=== PATIENT | female | born 1970 | race Caucasian/White ===

== ENCOUNTER → 2018-05-27 | Outpatient (CLI) | payer MEDICAID | LOC: ZCOL.LAB 19:23 | DX: I83.009 Varicose veins of unspecified lower extremity with ulcer of unspecified site (principal); I99.8 Other disorder of circulatory system ==

== ENCOUNTER → 2018-05-27 | Outpatient (CLI) | payer MEDICAID | LOC: COL.LAB 19:02 | DX: I83.009 Varicose veins of unspecified lower extremity with ulcer of unspecified site (principal); I99.8 Other disorder of circulatory system ==

== ENCOUNTER 2018-12-08 13:22 | Inpatient (IN) | payer MEDICAID ==
[2018-12-08] VITALS (225 sets, daily range): BP systolic 110–118; BP diastolic 80–101; PULSE 101–116; TEMP 98.4; O2SAT 84–100
[~2018-12-08] VITALS: Ht 154.9 cm; Wt 159.5 kg
[~2018-12-08 13:22] MED LIST: ADDERALL30 MG PO; BD POSIFLUSH SF10 ML IV; CARDIZEM 30MG T30 MG PO; CELEXA; CIPROFLOXA400 MG/202 IV; CLEOCIN HCL300 MG PO; CLONAZEPAM1 MG PO; DAZIDOX10 MG PO; EFFER-K20 MEQ PO; FENTANYL 50MCG TP; KLONOPIN 1MG1 MG PO; LASIX 40MG40 MG/4 ML IV; LOVENOX 6060 MG/0.6 SQ; MAXZIDE-25MG TA1 TAB PO; MOBIC15 MG PO; NEXIUM 24HR20 M1 PO; PERCOCET 325 MG1 TA2 PO; PRILOSEC10 MG PO; ROFERON-A18 MILLION IV; ROXICODONE 55 MG/TAB PO; SEROQUEL 2525 MG/TAB PO; TYLENOL 500MG500 MG PO; ZOFRAN INJ4 MG/2 ML IV
[2018-12-08 14:38] LABS: ARTERIAL BLD GAS O2 SATURATION 94.9 % (92-100); ARTERIAL BLD GAS TCO2 CT 25.5; ARTERIAL BLOOD GAS BASE EXCESS -1.4 (-2-2); ARTERIAL BLOOD GAS HCO3 24.2 meq/L (22-26); ARTERIAL BLOOD GAS PCO2 43.8 mmHg (35-45); ARTERIAL BLOOD GAS PO2 83.5 mmHg (80-100); ARTERIAL BLOOD GAS pH 7.36 (7.35-7.45)
[2018-12-08 14:59] LABS: INR 1.1 (0.8-3.0); PROTHROMBIN TIME 13.4 SECONDS (9.7-12.8)
[2018-12-08 15:00] LABS: BASO # 0.1 (0.0-0.2); BASO % 0.7 % (0.0-2.0); EOS # 0.1 (0.0-0.7); EOS % 1.2 % (0-4.0); GRAN # 6.1 (1.4-6.5); GRAN % 75.5 % (42.2-75.2); HEMATOCRIT 42.8 % (37.0-47.0); HEMOGLOBIN 13.4 g/dl (12.5-16.0); LYMPH % 12.6 % (20.0-51.0); MEAN CELL VOLUME 96 fl (80.0-100.0); MEAN CORPUSCULAR HEMOGLOBIN 30 pg (27.0-31.0); MEAN CORPUSCULAR HGB CONC 31 g/dl (33.0-37.0); MEAN PLATELET VOLUME 9.9 fl (7.4-10.4); MONO # 0.8 (0.1-0.6); MONO % 9.4 % (1.7-9.3); PLATELET COUNT 284 K/mm3 (130-400); RED BLOOD COUNT 4.47 M/mm3 (4.10-5.30)
[2018-12-08 15:02] LABS: PARTIAL THROMBOPLASTIN TIME 35.9 SECONDS (26.0-37.0)
[2018-12-08 15:15] LABS: ALANINE AMINOTRANSFERASE 14 U/L (9-52); ALBUMIN 3.6 gm/dL (3.5-5.0); ALKALINE PHOSPHATASE 260 U/L (50-136); ANION GAP 7 mmol/L (7-16); AST,SGOT 29 U/L (15-37); BILIRUBIN,TOTAL 1.9 mg/dL (0.0-1.0); BLOOD UREA NITROGEN 30 mg/dL (7-17); C-REACTIVE PROTEIN 3.8 mg/dL (0.0-0.9); CALCIUM 9.4 mg/dL (8.4-10.2); CARBON DIOXIDE 28 mmol/L (22-30); CHLORIDE 104 mmol/L (98-107); CREATININE, serum 1.25 (0.52-1.25); GLUCOSE 105 mg/dL (74-106); SODIUM 139 mmol/L (137-145); TOTAL PROTEIN 7.5 gm/dL (6.4-8.2)
[2018-12-08 15:28] LABS: TROPONIN-I < 0.012 ng/mL (0.000-0.035)
[2018-12-08] MEDS ORDERED: LASIX 40MG TABL40 MG PO (16:09)
[2018-12-08] MEDS ORDERED: ATARAX 25MG25 MG/TAB PO (16:10)
[2018-12-08] MEDS ORDERED: ZAROXOLYN5 MG PO (16:10)
[2018-12-08] MEDS ORDERED: TOPROL XL 50MG50 MG PO (16:11)
[2018-12-08] MEDS ORDERED: SILVADENE CREAM1 TU (16:12)
[2018-12-08] MEDS ORDERED: DAZIDOX10 MG PO (16:12)
[2018-12-08] MEDS ORDERED: MIRALAX PA17 GM/Dose PO (16:12)
[2018-12-08] MEDS ORDERED: LOTSPY (16:13)
[2018-12-08 16:19] LABS: COLLECTION METHOD CATHETER
[2018-12-08 16:41] LABS: HYALINE CAST >12 /lpf; MUCOUS Present /lpf; PH 5 (5-8); URINE APPEARANCE Clear; URINE BACTERIA None Seen /hpf; URINE BILIRUBIN Negative (NEGATIVE); URINE BLOOD Negative (NEGATIVE); URINE COLOR Amber; URINE GLUCOSE Negative (NEGATIVE); URINE KETONE Negative (NEGATIVE); URINE LEUKOCYTE ESTERASE Negative (NEGATIVE); URINE NITRATE Negative (NEGATIVE); URINE PROTEIN(semi-quant) 2+ (NEGATIVE); URINE UROBILINOGEN >=4.0 mg/dL (NEGATIVE)
[2018-12-08 16:43] LABS: TRICYCLIC ANTIDEPRESS URINE NEGATIVE
--- NOTE | 2018-12-08 18:25 | NUR ---
Patient arrives to ICU 8 via cart from ER, stands and pivots and transfers self to bed. Patient very anxious, easily gets self worked up. Has dry gauze dressing to RLE. IV to RAC infusing Vancomycin per pump. Oriented to room. Call light in reach.
--- NOTE | 2018-12-08 19:10 | NUR ---
Reviewing med list with patient and mother. Mother states patient manages own medications and takes on own, but hasn't had any of them today. Patient states hasn't had any Oxycodone in 3-4 days because she ran out. Also states she took some Clonazepam last night, "I used to take it all the time". There's also a list of medications "patient is not to recieve" on the bottom of her medication list. States has not taken any Methamphetamin since July or before, but does take Adderall at home and has a "prescription to prove it."
--- NOTE | 2018-12-08 19:59 | NUR ---
Report given to Careeta RN, mother and daughter at bedside and provide information. Patient very anxious, but able to redirect for short periods of time. Wearing BiPap at this moment with little difficulty.
[2018-12-08] MEDS ORDERED: DULCOLAX STOOL100 MG PO (20:22)
[2018-12-08] MEDS ORDERED: TYLENOL 500MG500 MG PO (20:23)
--- NOTE | 2018-12-08 23:44 | NUR ---
Pt sitting up at bed side, extremely anxious, scratching at leg and face. Able to tolerated bipap for able 45-1hour at the start of this shift. refusing current anxiety medications ordered. SHOSHANA Flores adn Dr. Caba, update on pt agitation and noncompliance with some of the medical tx d/t to agitation, orders recieved. Open ulcer noted on pt lower extremeties, bilat feet and lower legs dusky. Inside folds reddened. Neuro: A/O x 3 Resp: Currently on 3L NC @ 96% with Noc BiPap as needed, lung clear in upper and bases dim bilat Cardiac: SR to ST in low 100's BP stable at this time. [facility] remains in place. Will continue to monitor and update providers as needed.
[2018-12-09] VITALS (688 sets, daily range): BP systolic 11–122; BP diastolic 63–85; PULSE 69–98; TEMP 97.8–98.9; O2SAT 70–100
[2018-12-09 05:32] LABS: BASO # 0.1 (0.0-0.2); BASO % 0.5 % (0.0-2.0); EOS # 0.2 (0.0-0.7); EOS % 1.5 % (0-4.0); GRAN # 7.5 (1.4-6.5); GRAN % 75.2 % (42.2-75.2); HEMATOCRIT 42.6 % (37.0-47.0); HEMOGLOBIN 13.5 g/dl (12.5-16.0); LYMPH # 1.1 (1.2-3.4); LYMPH % 11.1 % (20.0-51.0); MEAN CELL VOLUME 94 fl (80.0-100.0); MEAN CORPUSCULAR HEMOGLOBIN 30 pg (27.0-31.0); MEAN CORPUSCULAR HGB CONC 32 g/dl (33.0-37.0); MEAN PLATELET VOLUME 10.2 fl (7.4-10.4); MONO # 1.1 (0.1-0.6); MONO % 11.2 % (1.7-9.3); PLATELET COUNT 256 K/mm3 (130-400); RED BLOOD COUNT 4.53 M/mm3 (4.10-5.30)
--- NOTE | 2018-12-09 05:57 | NUR ---
Sandra ANNA was called to notify of critical CO2-13, Order recieved for Stat ABG
--- NOTE | 2018-12-09 06:00 | NUR ---
RT called to draw STAT ABG
[2018-12-09 06:41] LABS: ALANINE AMINOTRANSFERASE 13 U/L (9-52); ALBUMIN 3.2 gm/dL (3.5-5.0); ALKALINE PHOSPHATASE 235 U/L (50-136); ANION GAP 10 mmol/L (7-16); AST,SGOT 24 U/L (15-37); BLOOD UREA NITROGEN 28 mg/dL (7-17); CALCIUM 8.9 mg/dL (8.4-10.2); CARBON DIOXIDE 26 mmol/L (22-30); CHLORIDE 104 mmol/L (98-107); CREATININE, serum 1.08 (0.52-1.25); GLUCOSE 81 mg/dL (74-106); MAGNESIUM 1.9 mg/dL (1.6-2.3); POTASSIUM 4.6 mmol/L (3.4-5.0); SODIUM 139 mmol/L (137-145); TOTAL PROTEIN 6.9 gm/dL (6.4-8.2)
--- NOTE | 2018-12-09 06:41 | NUR ---
RT leaving bedside at this time, unable to obtain STAT ABG, and pt refusing sticks. Pt lips started to look cyanotic, RN able to convince pt of dire need to wear B-Pap at this time. Will continue to monitor and update providers as needed.
--- NOTE | 2018-12-09 06:47 | NUR ---
PT IS A DIFFICULT STICK AND IS REFUSING ALL STICKS AT THIS TIME.
[2018-12-09 06:54] LABS: TROPONIN-I < 0.012 ng/mL (0.000-0.035)
[2018-12-09 07:28] LABS: ARTERIAL BLD GAS O2 SATURATION 82.7 % (92-100); ARTERIAL BLD GAS TCO2 CT 25.6; ARTERIAL BLOOD GAS BASE EXCESS -1.2 (-2-2); ARTERIAL BLOOD GAS HCO3 24.3 meq/L (22-26); ARTERIAL BLOOD GAS PCO2 43.6 mmHg (35-45); ARTERIAL BLOOD GAS PO2 51.9 mmHg (80-100); ARTERIAL BLOOD GAS pH 7.36 (7.35-7.45)
--- NOTE | 2018-12-09 07:42 | NUR ---
Dr. Perry was called x 3 to update of Consult, Office report that phones turn over after 0800, will pass on to dayshift to call again Dr. Gonzalez was called and update with new Co2 results and ABG, no orders recieved at this time.
--- NOTE | 2018-12-09 07:50 | NUR ---
Bedside report received from NITHYA Silvestre.
--- NOTE | 2018-12-09 08:00 | NUR ---
Assessment completed. Pt resting in bed, on Bipap. Pt arousable, easily upset. Oriented x3. Pt becomes anxious, tries to take off bipap mask. Pt remains on Precedex gtt through right AC PIV. Attempted to calm pt down, sips of water given. Repositioned pt for comfort. Pt c/o right lower leg pain when moved. kerlex drsg wrapped around RLL. Pt states she has had open wounds "for awhile". Right leg elevated on pillow. Discussed plan of care r/t importance of bipap. Pt able to keep bipap mask on. Call light in reach. Will monitor.
--- NOTE | 2018-12-09 08:48 | NUR ---
PT and OT in room with pt.
--- NOTE | 2018-12-09 09:50 | NUR ---
Precedex gtt turned off per Dr Caba's orders. Pt remains on bipap mask, pt still drowsy.
--- NOTE | 2018-12-09 09:55 | NUR ---
Bipap mask off, pt placed on 4L oxymask. Pt denies SOB. Sips of water given to pt. Pt tolerated well. Pt's mother and dtr at bedside. Emotional support given.
--- NOTE | 2018-12-09 10:14 | NUR ---
SW attended clinical rounds. Patient's mother, [place], and daughter were also present. Dr Caba and Dr Gonzalez voiced concerns about patient refusing treatment, PT, OT, and being agitated when she is awake. Dr Gonzalez also reported that patient tested positive for meth. Patient's mother reports she was not aware patient used meth recently. Patient's mother was very tearful during rounds. Patient woke up during rounds and became upset when her mom was voicing concerns. Patient's mother reported that when patient was discharged from [facility], she was not set up with any home health services but she was given O2 by [facility]. Patient's mother reports that patient does not like to use the oxygen. Patient also has a walker, w/c, cane, and shower chair at home. Dr Gonzalez also ordered a pallative care consult. Dr Gonzalez also reported that he would like psych to see patient once she is available but patient's mother does not want Dr Jiménez to be involved. Patient's mother reports that she was not helpful in the past. Patient lives in [place] with her mother and daughter. Patient's PCP is Dr Horner and she obtains prescriptions from [facility]. SW will continue to follow and assist with discharge needs.
--- NOTE | 2018-12-09 10:22 | NUR ---
Sara parr [place] at bedside to do PICC placement.
--- NOTE | 2018-12-09 12:30 | NUR ---
Bed bath given. Pt OOB to chair x1 assist. Steady gait. Pt tolerated well. Denies any SOB. VSS. Pt sitting in chair eating lunch. Pt's mother and dtr at bedside. Call light in reach.
--- NOTE | 2018-12-09 12:45 | NUR ---
Pt back to chair x1 assist. Steady gait. Pt in bed with bipap mask on. Pt sleeping when not stimulated. Ultrasound at bedside for venous duplex study of BLE.
--- NOTE | 2018-12-09 13:20 | NUR ---
maria teresa, palliative care RN, at bedside talking with pt's mother. Pt sleepy, in bed on bipap.
--- NOTE | 2018-12-09 13:52 | NUR ---
Left message with wound care for consult on Right lower extrem.
--- NOTE | 2018-12-09 14:15 | NUR ---
Drsg changed on right lower extrem. Multiple open uclers all over gutierrez and calf area. Stage 2 and unstageable wounds. Cleaned with sterile saline. Telfa applied on wounds and leg wrapped with kerlex. Pt c/o some pain with right leg during drsg change. Pt goes back to sleep when drsg change complete. Pt's mother and dtr at bedside.
--- NOTE | 2018-12-09 14:45 | NUR ---
Pt is quite drowsy but on bipap. I visited with mother and daughter of pt at bedside. They describe her as depressed. They reports she has been doing more around the house with folding clothes and doing dishes. Thought processes are not always clear though. Blame for things not going well is projected on others at times. Family denies any drug use leading up to this event. When told by Dr Jiménez the serious nature of pt's condition and the very poor prognosis, mother broke down, tearful. "How can I make her do these things to take care of herself? Advised that this is something that Galdino has to do and consistently." Mother is also seeing a therapist and was encouraged to continue that contact. Daughter Laylen "is the most important thing to Galdino". Support provided in this difficult situation. Discussed with Anabel Barone RN.
--- NOTE | 2018-12-09 16:42 | NUR ---
SW submitted a CPS report due to patient testing postive for meth and concerns for patient's daughter living at home. CPS intake ID [id number]
--- NOTE | 2018-12-09 19:39 | NUR ---
received report from wong fletcher.
--- NOTE | 2018-12-09 19:46 | NUR ---
called and updated the patients mother on patients condition.
[2018-12-10] VITALS (420 sets, daily range): BP systolic 104–120; BP diastolic 64–85; PULSE 90–97; TEMP 97.5–99.2; O2SAT 75–100
[2018-12-10 05:06] LABS: BASO % 0.3 % (0.0-2.0); EOS # 0.1 (0.0-0.7); EOS % 0.9 % (0-4.0); GRAN # 6.7 (1.4-6.5); GRAN % 74.4 % (42.2-75.2); HEMATOCRIT 41.9 % (37.0-47.0); LYMPH % 11.4 % (20.0-51.0); MEAN CELL VOLUME 96 fl (80.0-100.0); MEAN CORPUSCULAR HEMOGLOBIN 30 pg (27.0-31.0); MEAN CORPUSCULAR HGB CONC 31 g/dl (33.0-37.0); MEAN PLATELET VOLUME 9.9 fl (7.4-10.4); MONO # 1.1 (0.1-0.6); MONO % 12.6 % (1.7-9.3); PLATELET COUNT 230 K/mm3 (130-400); RED BLOOD COUNT 4.38 M/mm3 (4.10-5.30)
[2018-12-10 05:16] LABS: ALBUMIN 3.2 gm/dL (3.5-5.0); BILIRUBIN,TOTAL 3.5 mg/dL (0.0-1.0); CREATININE, serum 1.01 (0.52-1.25); TOTAL PROTEIN 7.1 gm/dL (6.4-8.2)
--- NOTE | 2018-12-10 07:25 | NUR ---
GAVE REPORT TO NITHYA GRESHAM.
--- NOTE | 2018-12-10 16:03 | NUR ---
Report called to Ivan BARRIGA
--- NOTE | 2018-12-10 16:51 | NUR ---
Transferred to Room 354 via WC by Deb BARRIGA. Mom and daughter at side for transfer. Attempt to call primary nurse, unavailable, will return call
--- NOTE | 2018-12-10 23:00 | NUR ---
Initial shift assessment done- pt has been sleeping first part of the shift,, right lower extremity dressing saturated with serous drainage- changed at this time with xeroform, abd,s and kerlix per wound orders- has numerous ulcers to Rlower leg- pt yelling out in pain- Spring given and dose of IV morphine given during the dressing change.- pt states the Morphine was effective- requesting food once dressing change was done. Has Saab with patricia urine-
[2018-12-11] VITALS (7 sets, daily range): BP systolic 97–121; BP diastolic 51–86; PULSE 85–100; TEMP 97.6–9707
--- NOTE | 2018-12-11 06:00 | NUR ---
Did sleep well all night after RLE dressing change- VSS, no requests.
[2018-12-11 06:31] LABS: ALBUMIN 3.1 gm/dL (3.5-5.0); BILIRUBIN,TOTAL 2.8 mg/dL (0.0-1.0); CREATININE, serum 0.91 (0.52-1.25); POTASSIUM 3.6 mmol/L (3.4-5.0); TOTAL PROTEIN 7.1 gm/dL (6.4-8.2)
--- NOTE | 2018-12-11 07:15 | NUR ---
Report received from Melanie BARRIGA. pT on contact precautions for MRSA. Resting in bed, ordered her breakfast, will continue to monitor.
--- NOTE | 2018-12-11 09:51 | NUR ---
Assessment charted. Pt is lethargic but awoke and ate all of breakfast. 02 at 3L NC. PICC to PAT, flushes and good blood return. Skin issues documented, see assessment. Pt c/o some pain to RLE. Reviewed plan to change dressing. Wants to take a nap after breakfast, will provide calm and dark environment per request.
--- NOTE | 2018-12-11 12:41 | NUR ---
Dressing change completed on RLE at this time. Pt tolerated well but it was painful for her when pulling off old dressing. It was saturated. Replaced with 8 4x4 zeroforms, ABDX4, Kerlex x3, refused stockinette. Pt resting on back, ordered lunch per her request. Will continue to monitor.
--- NOTE | 2018-12-11 18:52 | NUR ---
Bed bath provided this afternoon, cleaned thoroughly, changed bed, interdry and lotrimin powder provided to henry. Saab draining patricia dark urine well. Up to chair for supper, ate well. PRN pain meds provided this evening per request. Back in bed. Will give bedside shift report to nighthshift nurse who will resume care.
--- NOTE | 2018-12-11 22:25 | NUR ---
PATIENT LAYING IN BED WITH EYES CLOSED WATCHING TV. REPORTING GENRALIZED PAIN @ 8 ON 0-10 PAIN SCALE SEE EMAR FOR MORPHINE 2MG ADMINISTERED ORDERED. ATTITUDE WITHRAWN BUT PLEASANT AND COOPERATIVE. A/O X 4. DRESSING TO RLE CDI. SEE ASSESSMENT FOR FURTHER ASSESSMENT. DENIES FURTHER NEEDS OR COMPLAINTS AT END OF VISIT.
--- NOTE | 2018-12-12 02:43 | NUR ---
CALL FROM TELEMETRY REPORTING THAT PATIENT HAD 6-10 SECOND RUN OF AFIB WITH RVR MAX HEART RATE 130. CONVERTED BACK TO NSR WITH RATE IN LOW 90'S. PATIENT ASSESED. ASLEEP BUT EASILY AROUSED WHEN SPOKEN TO. DENIES C/O OF CHEST PAIN OR PALPATIONS. PATIENT HAS TAKEN OF BIPAP MASK. MASK REAPPLIED AND PATIENT EDUCATED ON IMPORTANCE OF WEARING MASK WHILE ASLEEP. VERBALIZES UNDERSTANDING. BP 95/44, HR 93, O2 93 ON NC. VAUGHN INVESTMENT ACCOUNTANT NOTIFIED OF ABOVE DOCUMENTATION. COMMUNICATION TO CONTINUE TO MONITOR AT THIS TIME.
[2018-12-12 03:47] VITALS: BP 99/61; PULSE 90; TEMP 98.6
[2018-12-12 05:46] LABS: BASO # 0.1 (0.0-0.2); BASO % 0.7 % (0.0-2.0); EOS # 0.2 (0.0-0.7); EOS % 2.9 % (0-4.0); GRAN # 4.7 (1.4-6.5); GRAN % 68.5 % (42.2-75.2); HEMATOCRIT 43.5 % (37.0-47.0); HEMOGLOBIN 13.4 g/dl (12.5-16.0); LYMPH % 13.8 % (20.0-51.0); MEAN CELL VOLUME 96 fl (80.0-100.0); MEAN CORPUSCULAR HEMOGLOBIN 30 pg (27.0-31.0); MEAN CORPUSCULAR HGB CONC 31 g/dl (33.0-37.0); MONO # 0.9 (0.1-0.6); MONO % 13.5 % (1.7-9.3); PLATELET COUNT 224 K/mm3 (130-400); RED BLOOD COUNT 4.54 M/mm3 (4.10-5.30); REDCELL DISTRIBUTION WIDTH-CV 15.1 % (11.5-14.5)
[2018-12-12 05:54] LABS: CALCIUM 8.9 mg/dL (8.4-10.2); CREATININE, serum 0.86 (0.52-1.25); POTASSIUM 3.8 mmol/L (3.4-5.0)
--- NOTE | 2018-12-12 07:15 | NUR ---
Report received from NITHYA Dill. PT in bed resting with bipap in place. Will conitnue to monitor.
[2018-12-12 07:28] VITALS: BP 104/61; PULSE 90; TEMP 97.4
--- NOTE | 2018-12-12 09:00 | NUR ---
PICC intact right upper arm. With sterile technique right upper arm PICC dressing change done with insertion site cleansed with ChloraPrep 1, chlorhexidine impregnated disc applied, skin prep, StatLock, and Tegaderm applied. X-rays Tegaderm applied on top of dressing. Arm wrapped with Jayro to protect catheter. No signs or symptoms of IV complications noted. No concerns voiced. Patient is coperative today.
--- NOTE | 2018-12-12 09:33 | NUR ---
Assessment charted. pT lethargic this am but awakens easily and agreeable to am meds. RLE is draining through dressing and will be changed shortly. LLE remains red. Bipap tolerated when sleeping, 02 per NC when awake. PICC to PAT. Scratches on body and face from itching and scratching. PT wants to rest for some time and then wake up later. Will continue to monitor.
--- NOTE | 2018-12-12 10:46 | NUR ---
Dressing change completed at this time with assistance of one other personnel. Pt tolerated well. Yesterday's dressing was saturated. Cleaned with saline. Placed xeroform, ABDs, kerlex and tape.
[2018-12-12 13:02] VITALS: BP 115/60; PULSE 91; TEMP 97.5
--- NOTE | 2018-12-12 13:43 | NUR ---
ROLA informed that patient could discharge tomorrow but she will need post acute rehab. ROLA met with patient about this. Patient is agreeable to post acute rehab but would like SW to speak with her mother. ROLA contacted patient's mother. ROLA reported that, due to patient's insurance, there are limited options for post acute rehab. Patient's mother reports she would like to speak with patient and she will call SW back.
--- NOTE | 2018-12-12 14:06 | NUR ---
Initial visit; Patient appeared not interested in spiritual care however thanked [employer] for offering God's blessings.
--- NOTE | 2018-12-12 14:52 | NUR ---
Met with pt this afternoon but she offers little input or insight into her situation. She reports that her mother must be present to talk about goals of care or possible placement options. She is very sleepy and lethargic during this interaction, showing little strong emotion about any subject.
[2018-12-12 15:31] LABS: RHEUMATOID FACTOR-SCREEN <15 IU/mL (0-29)
--- NOTE | 2018-12-12 16:18 | NUR ---
SW provided a list of post acute rehab options (SNF and inpatient rehab) to patient's mother. Patient's mother will inform SW of choices after speaking with patient.
[2018-12-12 16:21] VITALS: BP 121/69; PULSE 92; TEMP 97.8
--- NOTE | 2018-12-12 16:58 | NUR ---
SW spoke with patient and her mother about post acute rehab choices. Patient and mother chose 1. [facility]. [facility] 3. [facility]. SW will fax referrals.
--- NOTE | 2018-12-12 18:28 | NUR ---
Pt has had a good day. Up to chair and up with therapy this afternoon. Ordered her own supper. IVF anbitiotics infusing. PRN pain meds provided over shift for RLE pain. Denies needs, will give bedside shift report to nightshift nurse who will resume care.
[2018-12-12 20:07] VITALS: BP 126/77; PULSE 98; TEMP 97.5
[2018-12-12 20:20] LABS: ANA SCREEN with REFLEX Negative (Negative)
--- NOTE | 2018-12-12 20:30 | NUR ---
Initial shift assessment done- denies pain at this time- Up to BSC with one assist,voiding dk colored urine. Tele on. Dressing intact to RLE
[2018-12-12 23:57] VITALS: BP 106/67; PULSE 90; TEMP 98.4
[2018-12-13 04:51] VITALS: BP 121/62; PULSE 101; TEMP 98.4
--- NOTE | 2018-12-13 05:31 | NUR ---
Did sleep fair during the night- pt states has not slept at all--did wear Bipap till about 0300 then insisted she could tolerate it- medicated x1 with [place] for RLE pain.
[2018-12-13 05:55] LABS: BASO # 0.1 (0.0-0.2); BASO % 0.8 % (0.0-2.0); EOS # 0.2 (0.0-0.7); GRAN % 63.6 % (42.2-75.2); HEMATOCRIT 43.9 % (37.0-47.0); HEMOGLOBIN 13.6 g/dl (12.5-16.0); LYMPH # 1.1 (1.2-3.4); LYMPH % 17.2 % (20.0-51.0); MEAN CELL VOLUME 97 fl (80.0-100.0); MEAN CORPUSCULAR HEMOGLOBIN 30 pg (27.0-31.0); MEAN CORPUSCULAR HGB CONC 31 g/dl (33.0-37.0); MEAN PLATELET VOLUME 10.1 fl (7.4-10.4); MONO # 0.9 (0.1-0.6); MONO % 14.9 % (1.7-9.3); PLATELET COUNT 182 K/mm3 (130-400); RED BLOOD COUNT 4.53 M/mm3 (4.10-5.30); REDCELL DISTRIBUTION WIDTH-CV 14.8 % (11.5-14.5)
[2018-12-13 06:08] LABS: ALBUMIN 3.1 gm/dL (3.5-5.0); CALCIUM 8.9 mg/dL (8.4-10.2); CREATININE, serum 0.9 (0.52-1.25); TOTAL PROTEIN 7.1 gm/dL (6.4-8.2)
[2018-12-13 09:01] VITALS: BP 121/79; PULSE 92; TEMP 98.5
--- NOTE | 2018-12-13 09:43 | NUR ---
ROLA spoke with [facility]. They report there is no open female bed. They are unable to accept patient. ROLA contacted Neha from [facility] yesterday later afternoon. Neha reports she will have the clinical team review patient today. ROLA also contacted [facility] in [place]. They report the clinical nursing team is reviewing patient.
[2018-12-13 13:34] VITALS: BP 124/76; PULSE 95; TEMP 98.4
--- NOTE | 2018-12-13 13:45 | NUR ---
ROLA spoke with Neha from [facility] this morning. She reports the clinical team is reviewing patient. ROLA then spoke with patient's mother via phone. She reports she believes [facility] would probably benefit patient more than a nursing facility. ROLA reported that she will update her as soon as ROLA hears from [facility] ROLA contacted Neha from [facility], again. ROLA left a message. ROLA also contacted [facility]. THe staff memeber ROLA spoke to was unable to give an update on if they are able to accept patient or not but she will call ROLA after she speaks to the person working on the referral.
--- NOTE | 2018-12-13 14:25 | NUR ---
[facility] unable to accept patient. SW attempted to contact patient's mother about referrals. SW left a message.
--- NOTE | 2018-12-13 15:09 | NUR ---
ROLA contacted patient's mother, [place], again. ROLA reported that [facility] is unable to accept patient. SW inquired if she can fax referrals to more facilities. [place] is agreeable to SW faxing a referral to [facility], [facility], [facility], and [facility], and [facility]. [facility] P# [phone] F# [phone] [facility] P# [phone] F# [phone] [facility] F# [phone] [facility] P# [phone] F# [phone] [facility] P# [phone] F# [phone]
--- NOTE | 2018-12-13 15:48 | NUR ---
Tonya from [facility] reported they are unable to accept patient.
[2018-12-13 15:49] LABS: ANGIOTENSIN CONVERTING ENZYME 104 U/L (16 - 85)
--- NOTE | 2018-12-13 16:11 | NUR ---
PT reporting 6-7/10 pain to RLE; Physician aware of continued pain with dressing changes and to RLE; ABX therapy continues; No further complaints or concerns at time of rounds; Will continue to monitor. CDA
[2018-12-13 16:18] VITALS: BP 108/59; PULSE 95; TEMP 98.6
[2018-12-13 19:37] VITALS: BP 126/79; PULSE 87; TEMP 97.9
--- NOTE | 2018-12-13 20:00 | NUR ---
Report received. 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 Assessment complete see note. VS stable. Right lower extremity dressing with small amount of drainage noted-serosanguineous. Clean chux provided with pillow elevation. Noted to have several scabbed areas to face/abdomen. C/O pain to right lower extemity reated 01/04 described as ache with sharp intermittent stabs. Medicated per dr order. Denies needs at this time. Did get up to bedside commode to void/had a bowel movement. Encouraged to call for questions or concerns. Verbalizes understanding. Call light within reach. Will monitor.
[2018-12-13 20:35] LABS: C-ANCA 14 U/mL (0-99)
--- NOTE | 2018-12-13 23:10 | NUR ---
Winchester at nurses station crying out. Went to room and states she cant deal with BIPAP tonight. Refusing to put back on. Respiratory therapy notified. Machine put on stand by and oxygen applied via NC at 3L/NC. Will monitor.
[2018-12-14 00:06] VITALS: BP 117/67; PULSE 69; TEMP 97.5
[2018-12-14 04:19] VITALS: BP 98/50; PULSE 92; TEMP 98.3
--- NOTE | 2018-12-14 05:00 | NUR ---
Has slept off and on this shift. Up to commode to void-one assist-tolerated well. Dressing to right lower extremity saturated-changed using zerofoam, 4x4s, ABDx3 then wrapped with two kerlex. [place] given for pain rated 7/10 to that extremity-refused elevation. 0600 dose of Vanc warning Vanc trough is needed. None ordered. Waiting for Pharmacy to arrive to check status before hanging. No other c/o at this time. Call light within reach. Bed in low position. Will monitor.
--- NOTE | 2018-12-14 06:30 | NUR ---
Pharmacy notified of Vanc dose due at 0600-no trough ordered but flagged that its needed. Verified need-order placed. Lab here to draw. Will pass on in report.
--- NOTE | 2018-12-14 07:00 | NUR ---
Report received from NITHYA Anaya. PT in bed sleeping, PRN pain pill provided at 0530 will continue to monitor.
[2018-12-14 07:51] VITALS: BP 103/68; PULSE 90; TEMP 98.2
--- NOTE | 2018-12-14 08:23 | NUR ---
Assessment charted. Pt moaning in room from RLE hurting, laying on R side with leg flat on bed and LLE on top of it. Had pt turn to back, elevated RLE on pillows and discussed need to keep this leg elevated and not to rest LLE on top of it. Pt states she "feels shitty" and having a hard time, discussed need to wear BIPAP at night, all the time, she is agreeable to wearing it at this time. Replaced BIPAP. PICC to PAT, Vanc trough resulted and WNL running Vanc at this time. RLE dressing is CDI at this time, shift supervisor film processing recently changed it. Denies needs, will let BIPAP remain in place for a while so RR status can be improved and then will deliver breakfast. Will continue to montior.
--- NOTE | 2018-12-14 09:08 | NUR ---
ROLA spoke to Diana from [facility]. She reports they are unable to accept patient but she has spoken to another long-term facility in [place] [employer] about patient and she reports they may be able to accept her. ROLA will inform patient's mother and inquire if she is open to [facility] in [place] [employer].
--- NOTE | 2018-12-14 09:16 | NUR ---
ROLA desai'd a voicemail from Doreen at [facility]. She reports they are unable to accept patient dues to insurance and patient's meth use.
--- NOTE | 2018-12-14 10:15 | NUR ---
Report given to NITHYA Eric who will resume care.
--- NOTE | 2018-12-14 10:52 | NUR ---
ROLA spoke with Kal at [facility]. She reports that patient is accepted clinically but they are waiting on patient insurance to aprrove.
--- NOTE | 2018-12-14 10:57 | NUR ---
PT ON BIPAP 94% 16/6 45%
--- NOTE | 2018-12-14 14:57 | NUR ---
ROLA spoke Ricarda from [facility]. Ricarda reports that she rec'd a prior auth request from [facility]. Ricarda reported that [facility] in not in network with patient's insurance and ROLA will need to utilize their website to find an in network SNF provider.
--- NOTE | 2018-12-14 15:50 | NUR ---
SW met with patient, patient's mother, and daughter. SW reported that patient's insurance denied [facility] because they were not in network. SW reported that [facility] is in network and they are reviewing the referral. Patient's mother inquired if [facility] was in network. SW looked on the Medicaid [employer] website and reported that [facility] is in network. SW will fax a referral to [facility].
[2018-12-14 16:52] VITALS: BP 107/62; PULSE 80; TEMP 97.3
[2018-12-14 19:54] VITALS: BP 114/66; PULSE 92; TEMP 98.5
--- NOTE | 2018-12-14 20:30 | NUR ---
Initial shift assessment done- denies pain at this time, Tele on, no requests-wants to get some sleep. Dressing to RLE with scant serous drainage on kerlix--
[2018-12-14 23:38] VITALS: BP 109/67; PULSE 91; TEMP 98.1
[2018-12-15 04:50] VITALS: BP 100/57; PULSE 88; TEMP 97.8
--- NOTE | 2018-12-15 05:00 | NUR ---
Crying- up to BSC, states she cant get comfortable, RLE dressing saturated-- pt up in chair so that we can change the sheets on bed, change her gown etc. RLE dressing changed- used xeroform, abd,s and kerlix as ordered- ulcers all over lower leg-serous drainage. Morphine given a few miutes prior to dressing change-
[2018-12-15 06:15] LABS: BASO # 0.1 (0.0-0.2); BASO % 0.9 % (0.0-2.0); EOS # 0.2 (0.0-0.7); EOS % 3.1 % (0-4.0); GRAN # 3.7 (1.4-6.5); GRAN % 64.5 % (42.2-75.2); HEMATOCRIT 43.3 % (37.0-47.0); HEMOGLOBIN 13.5 g/dl (12.5-16.0); LYMPH # 0.9 (1.2-3.4); LYMPH % 15.8 % (20.0-51.0); MEAN CELL VOLUME 95 fl (80.0-100.0); MEAN CORPUSCULAR HEMOGLOBIN 30 pg (27.0-31.0); MEAN CORPUSCULAR HGB CONC 31 g/dl (33.0-37.0); MEAN PLATELET VOLUME 10.1 fl (7.4-10.4); MONO # 0.9 (0.1-0.6); MONO % 14.8 % (1.7-9.3); PLATELET COUNT 177 K/mm3 (130-400); RED BLOOD COUNT 4.55 M/mm3 (4.10-5.30); REDCELL DISTRIBUTION WIDTH-CV 14.6 % (11.5-14.5)
[2018-12-15 06:25] LABS: CALCIUM 8.9 mg/dL (8.4-10.2); CREATININE, serum 0.96 (0.52-1.25); POTASSIUM 3.8 mmol/L (3.4-5.0)
[2018-12-15 08:57] VITALS: BP 118/69; PULSE 89; TEMP 97.9
--- NOTE | 2018-12-15 09:58 | NUR ---
Pt lying in bed eyes closed, awakens to verbal stimuli. C/O pain to right lower leg 10. Received morphine and dressing change at 5am. Dressing is clean dry and intact. Completed morning assessment. Breathing even and unlabored. Breath sounds diminshed at bases, on 2L NC. Denies any shortness of breath or chest pain. PICC in place, both flush easily. Will continue to monitor. Call light in reach.
--- NOTE | 2018-12-15 10:56 | NUR ---
ROLA spoke with Kal from [facility]. ROLA reported to Kal that patient's risk and insurance manager, Ricarda, told SW that [facility] was not in network with the insurance and that [facility] does not have a contract with the insurance. Kal spoke to her claims administrator and billing department about this. They report that they do have a contract with patient's insurance and are in network. ROLA provided Kal with Ricarda's phone number to speak to her about the insurance issue. [facility] also reported that once insurance approves a skilled stay, they are able to accept patient. Insurance told Kal that they should get either an acceptance or denial by tomorrow morning.
[2018-12-15 12:35] VITALS: BP 130/69; PULSE 66; TEMP 98.3
--- NOTE | 2018-12-15 13:20 | NUR ---
Pt up for lunch, bandage fell off. Reapplied new bandages to right lower leg. Denies any needs at this time. Call light in reach.
--- NOTE | 2018-12-15 13:54 | NUR ---
SW spoke with Ricarda from [facility]. Patient was not accepted.
--- NOTE | 2018-12-15 15:15 | NUR ---
Pt C/O pain to right lower leg 12/05. Pain medication administered per emar.
--- NOTE | 2018-12-15 16:16 | NUR ---
ROLA spoke with Ricarda from [employer]. Ricarda requested SW fax her clinical info on patient and ntoes stating why SNF is medically necessary. She also requested PT notes. ROLA faxed all requested information. Ricarda reports that the medical assisting program director will review everything and either approve or deny the skilled request.
[2018-12-15 16:58] VITALS: BP 125/94; PULSE 95; TEMP 97.6
--- NOTE | 2018-12-15 19:00 | NUR ---
Report given to Yue BARRIGA. Pt in room, dinner tray in room.
--- NOTE | 2018-12-15 19:45 | NUR ---
PT RESTING IN BED A+OX4. REPORTS PAIN 6/10 IN RIGHT LEG- PRN PAIN MEDS GIVEN. RIGHT LEG DRESSIGNN DCI. PICC FLUSHES WELL, BLOOD RETURN NOTED. TELE ON. PT ON 2L VIA RI. NO NEEDS AT THIS TIME. CALL LIGHT IN REACH. SHIFT ASSESSMENT COMPLETE.
[2018-12-15 20:47] VITALS: BP 101/68; PULSE 97; TEMP 97.6
[2018-12-15 23:30] VITALS: BP 93/50; PULSE 86; TEMP 98.5
--- NOTE | 2018-12-16 | NUR ---
PT RESTING IN BED A+OX4. PT DENIED NEED FOR PAIN MEDS AT THIS TIME. REPORTS NO NEEDS. REFUSED BIPAP AT THIS TIME- REPORTS SHE MIGHT TRY IT LATER.
--- NOTE | 2018-12-16 03:30 | NUR ---
pt had a moderately large watery stool. dressing changed at this time d/t saturated dressing. wound is sloughing with yellow drainage. prn pain meds given. pt crying during dressing change but tolerated well. pt on bipap at this time. call light in reach
[2018-12-16 04:57] VITALS: BP 114/62; PULSE 77; TEMP 96.1
--- NOTE | 2018-12-16 06:00 | NUR ---
PT HAD AN UNEVENTFUL NIGHT. DRESSING CHANGED AT 0330- SLOUGHING AND YELLOW DRAINAGE NOTED. PICC FLUSHES WELL, BLOOD RETURN NOTED X2. PAIN MEDS GIVEN ON REQUEST. PT WORE BIPAP FOR 3-4 HOURS DURING NIGHT. ON 2L VIA NC WHILE OFF BIPAP. NO NEEDS AT THIS TIEM. CALL LIGHT IN REACH
--- NOTE | 2018-12-16 06:52 | NUR ---
REPORT GIVEN TO NITHYA HARDY
[2018-12-16 07:48] VITALS: BP 104/59; PULSE 84; TEMP 98.1
--- NOTE | 2018-12-16 08:12 | NUR ---
Pt lying in bed moaning an c/o pain 8/10 to right leg. Dyspnea on exertion noted. Pain medication administered per emar, will f/u with morphine. Dressing intact to right lower leg. Morning assessment completed. Dr. Caba called and spoke with nurse about pt and requested callback from the MAINTENANCE SUPERVISOR 2ND SHIFT. Will continue to monitor. Call light in reach.
--- NOTE | 2018-12-16 12:32 | NUR ---
PT LYING IN BED, C/O PAIN TO RIGTH LOWER LEG 12/05. REPLACED TELEMETRY BATTERIES. DENIES ANY NEEDS.
[2018-12-16 13:40] VITALS: BP 95/65; PULSE 60; TEMP 98.1
--- NOTE | 2018-12-16 14:26 | NUR ---
ROLA spoke with Kal from [facility]. She reports she has not gotten aprroval from patient's insurance yet. Kal spoke with Ricarda, insurance counsel, and Ricarda reported the Railroad Mechanic is reviewing the clinical information that was sent.
[2018-12-16 17:06] VITALS: BP 117/67; PULSE 90; TEMP 97.4
--- NOTE | 2018-12-16 18:27 | NUR ---
Pt C/O pain 12/05. Adminsitered prn olgaco. Pt up to chair, eating dinner. Bed sheets changed. Bandage to right lower leg changed. Denies any needs at this time.
[2018-12-16 19:32] VITALS: BP 96/58; PULSE 93; TEMP 98.5
--- NOTE | 2018-12-16 19:49 | NUR ---
PT RESTING IN BED A+OX4. REPORTS PAIN -PRN MEDS GIVEN. LUNGS CLEAR BUT DIMINISHES. BOWEL SOUNDS HEARD. REPORTED DIARRHEA SINCE ARRIVAL TO HOSPITAL. TELE ON. REQUESTED FOR BIPAP AT 2300. NO NEEDS AT THIS TIME. CALL IGHT IN REACH
--- NOTE | 2018-12-16 21:00 | NUR ---
PICC FLUSHES, BLOOD RETURN NOTED.
[2018-12-17] VITALS (7 sets, daily range): BP systolic 92–128; BP diastolic 53–75; PULSE 64–90; TEMP 97.6–98.5
--- NOTE | 2018-12-17 05:51 | NUR ---
dressing was saturated with yellow drainage, wound sloughing -dressing changed at 0430- prn pain meds given at this time- pain score 8/10. reports relief. pt anxious- prn serequel given, picc flushes, blood return noted. pt wore bipap for 2-3 hours. currently on 2l via NC. no needs at this time. call light in reach
--- NOTE | 2018-12-17 07:28 | NUR ---
report given to chance Macdonald
--- NOTE | 2018-12-17 07:37 | NUR ---
REPORT RECEIVED FROM NITHYA RATLIFF. PT SLEEPING SOUNDLY IN BED. CALL LIGHT IN REACH.
--- NOTE | 2018-12-17 09:24 | NUR ---
Pt resting in bed and c/o body ache all over. Pt's R leg dressing checked and still dry, clean and intact. Call light in reach. Apple juice provided per pt's request.
--- NOTE | 2018-12-17 10:28 | NUR ---
Visit attempted and pt sleeping soundly in bed. Call light in reach.
--- NOTE | 2018-12-17 13:03 | NUR ---
Pt reports she feels confined in the hospital and anxious about the situation. Pt able to calm herself down after NITHYA Macdonald talking to pt. Pt denied pain. Call light in reach.
--- NOTE | 2018-12-17 13:29 | NUR ---
PT PUSHED CALL LIGHT AND ASKED FOR PAIN MED. PT C/O HER R LEG CELLULITIS. CALL LIGHT IN REACH.
--- NOTE | 2018-12-17 15:43 | NUR ---
Pt c/o pain and getting agitated. Pt agreed to take pain med. Call light in reach.
--- NOTE | 2018-12-17 16:40 | NUR ---
Pt c/o humid and stuffy air in her rm and asked for a fan. document control supervisor called in and brought the fan. Fat set up in her room and pt's grateful. Call light in reach.
--- NOTE | 2018-12-17 21:40 | NUR ---
Shift assessment complete. Patient in bed, awake. Pain 4/10 in RLL, declines pain medication at this time. Will continue to monitor. RLL dressing reinforced. Denies further needs at this time.
[2018-12-18] VITALS (8 sets, daily range): BP systolic 82–123; BP diastolic 48–68; PULSE 72–93; TEMP 98–98.9
--- NOTE | 2018-12-18 04:12 | NUR ---
Patient c/o 810 pain in RLL. [place] prn given. Dressing needing to be changed, morphine not due. Notified SHOSHANA Rodríguez that morphine IV is needed for dressing change. See orders.
--- NOTE | 2018-12-18 04:22 | NUR ---
BP 82/48. Notified SHOSHANA Rodríguez. En route to see patient. Morphine not given.
--- NOTE | 2018-12-18 04:29 | NUR ---
Updated patient that I could not give her the IV morphine due to her low BP. Patient responded, "yeah, it's because I didn't get my f-ing dressing changed yesterday and I'm in f-ing pain!" Reassured her that we would change the dressing this morning and pass on to day shift that dressing needs to be changed daily, but also when saturated. Patient still upset with RN. Rodríguez updated. Dressing to be changed when po pain medication is effective.
--- NOTE | 2018-12-18 05:48 | NUR ---
Patient apologized for emotional outburst, and said I could change her RLE dressing. Old dressing removed. Patient premedicated with pain meds, SBP 116. SHOSHANA Rodríguez notified, ok to proceed with morphine IV. Xeroform placed on open areas, covered with ABD's, wrapped with kerlix x3. Patient tolerated fairly well. Denies further needs at this time. Will continue to monitor.
--- NOTE | 2018-12-18 10:00 | NUR ---
PATIENT IS GIVEN PRN 1 TAB NORCO AND 2MG MORPHINE IVP FOR COMPLAINTS OF PAIN. THE DRESSING TO THE RIGHT LOWER LEG HAS BEEN REMOVED TO GET IN THE SHOWER. THE DRESSING HAD MODERATE AMOUNT OF SEROSANG DRAINAGE NOTED. THERE IS A LARGE OPEN AREA SURROUNDING THE WHOLE LOWER CALF. IT IS VERY TENDER.
--- NOTE | 2018-12-18 10:55 | NUR ---
PATIENT VOMITED. SHE REPORTS THAT HER STOMACH IS JUST UPSET AND THEN VOMITED SPRITE PROVIDED WILL CALL DOCTOR FOR NAUSEA MEDICATION.
--- NOTE | 2018-12-18 11:14 | NUR ---
NAUSEA MEDICATION GIVEN IVP PER ORDERS
--- NOTE | 2018-12-18 15:00 | NUR ---
PATIENT COMPLAINS OF PAIN. 1 PAIN PILL GIVEN
--- NOTE | 2018-12-18 18:30 | NUR ---
PATIENT GIVEN MORPHINE 2MG IVP FOR COMPLAINTS OF PAIN.
--- NOTE | 2018-12-18 19:50 | NUR ---
Patient report received from NITHYA Flores at shift change. Upon assessment at this time patient is resting in bed. Reports that her dressing needs to be changed to right lower extremitity. PICC to right upper arm. Denies significant pain at this time, had morphine at 1830. No n/v reported. No other needs at this time.
[2018-12-19 04:14] VITALS: BP 108/61; PULSE 93; TEMP 98.2
[2018-12-19 07:30] VITALS: BP 111/71; PULSE 92; TEMP 98.2
--- NOTE | 2018-12-19 07:40 | NUR ---
Received report from NITHYA Royal.
--- NOTE | 2018-12-19 08:35 | NUR ---
Pt asleep upon entry, easily awaken, some C/O pain in right leg, shift assessments complete, left Pt call light in reach, bed in lowest position.
[2018-12-19 10:33] LABS: CALCIUM 9.2 mg/dL (8.4-10.2); CREATININE, serum 0.97 (0.52-1.25); POTASSIUM 4.3 mmol/L (3.4-5.0)
[2018-12-19 10:44] LABS: BASO # 0.1 (0.0-0.2); BASO % 1.2 % (0.0-2.0); EOS # 0.1 (0.0-0.7); EOS % 2.7 % (0-4.0); GRAN # 2.8 (1.4-6.5); GRAN % 57.5 % (42.2-75.2); HEMATOCRIT 44.7 % (37.0-47.0); HEMOGLOBIN 13.7 g/dl (12.5-16.0); LYMPH # 1.2 (1.2-3.4); LYMPH % 24.9 % (20.0-51.0); MEAN CELL VOLUME 96 fl (80.0-100.0); MEAN CORPUSCULAR HEMOGLOBIN 29 pg (27.0-31.0); MEAN CORPUSCULAR HGB CONC 31 g/dl (33.0-37.0); MEAN PLATELET VOLUME 10.2 fl (7.4-10.4); MONO # 0.6 (0.1-0.6); MONO % 13.1 % (1.7-9.3); PLATELET COUNT 136 K/mm3 (130-400); RED BLOOD COUNT 4.66 M/mm3 (4.10-5.30); REDCELL DISTRIBUTION WIDTH-CV 14.3 % (11.5-14.5)
[2018-12-19 12:08] VITALS: BP 131/84; PULSE 92; TEMP 97.6
--- NOTE | 2018-12-19 12:57 | NUR ---
Changed bandage on right lower leg, [place] given 1 hour prior with 2 mg morphine given 15 minutes prior to change, removed all old dressings, old dressings had exudate showing in some spots through the outer wrap, placed 3X Xeroform on wounds covered by 3X ABD pads, secured with 2X kerlix wrap. Pt tolerated the procedure well.
--- NOTE | 2018-12-19 14:20 | NUR ---
PICC intact right upper arm. Patient reports dressing was changed last night. No date noted on dressing. With sterile technique right upper arm PICC dressing change done with insertion site cleansed with ChloraPrep 1, chlorhexidine impregnated disc applied, skin prep, StatLock, and Tegaderm applied. No signs or symptoms of IV complications noted. No concerns voiced. Arm wrapped with [place] to protect catheter.
--- NOTE | 2018-12-19 16:17 | NUR ---
ROLA spoke to Galdino Sanchez from [employer]. Galdino reports that she is going to speak with the curator medical museum about reconsidering approving skilled for patient. Galdino reports that she will contact ROLA after she speaks to the curator medical museum. Patient is also being screened by IPR
[2018-12-19 16:48] VITALS: BP 113/60; PULSE 99; TEMP 98
--- NOTE | 2018-12-19 17:58 | NUR ---
Pt has been resting in the room, has C/O pain and asks for PRN pain medications when needed, currently has a pain rating of 6/10 which she states as tolerable. VS have remained stable.
[2018-12-19 20:51] VITALS: BP 125/80; PULSE 73; TEMP 97.4
[2018-12-20 00:13] VITALS: BP 122/81; PULSE 88; TEMP 98.1
[2018-12-20 06:01] VITALS: BP 90/45; PULSE 92
--- NOTE | 2018-12-20 07:15 | NUR ---
Report recieved from NITHYA Royal.
[2018-12-20 07:24] VITALS: BP 128/85; PULSE 98; TEMP 98.4
--- NOTE | 2018-12-20 10:19 | NUR ---
ROLA spoke with IPR director. She reports a prior auth for IPR was sent to patient's insurance this morning. ROLA contacted Galdino Sanchez, [place] for [employer], and informed her of the prior auth. She reports that she will inform the back office medical assistant and ask if he could make his decision today.
--- NOTE | 2018-12-20 10:50 | NUR ---
Dr. Stovall rounds at this time. Orders as entered CPOE.
[2018-12-20 11:19] VITALS: BP 127/77; PULSE 73; TEMP 97.8
--- NOTE | 2018-12-20 15:10 | NUR ---
ROLA informed by IPR director that patient's insurance approved patient to go to [facility]. IPR director is informing patient. SW attempted to contact patient's mom, [place], about approval. SW left a message.
[2018-12-20] MEDS ORDERED: LASIX 20MG TABL20 MG PO (15:14)
[2018-12-20] MEDS ORDERED: SEROQUEL 2525 MG/TAB PO ×2 (15:15→20:06)
[2018-12-20] MEDS ORDERED: NORCO 325 MG-7.1 TAB PO (15:15)
[2018-12-20] MEDS ORDERED: TOPROL XL 25MG25 MG PO (15:15)
[2018-12-20] MEDS ORDERED: ZYVOX 600MG600 MG PO (15:17)
[2018-12-20] MEDS ORDERED: CIPRO 500MG TA500 MG PO (15:17)
[2018-12-20] MEDS ORDERED: IPRATROPIUM BROM3 M1 IH (15:17)
[2018-12-20 15:45] VITALS: BP 106/67; PULSE 84; TEMP 98
--- NOTE | 2018-12-20 17:51 | NUR ---
Patient report called to NITHYA Heath. Patient transferred to [facility] with all belongings. RT called to transport BiPap.
[2018-12-20] MEDS ORDERED: ZOFRAN INJ4 MG/2 ML IV (19:59)
[2018-12-20] MEDS ORDERED: MORPHINE SULF2 MG/M1 IV (20:05)
[2018-12-20] MEDS ORDERED: LOVENOX 4040 MG/0.4 SQ (20:08)
[2018-12-20] MEDS ORDERED: TYLENOL 500MG500 MG PO (20:15)
== END 2018-12-20 17:52 | DRG 291 ==
LOC: COL.ER 13:22 → ICU 16:16 → MEDICAL 12-10 16:56
PROVIDERS: Emergency Medicine; Family Medicine; Hospitalist; Internal Medicine Pulmonary Disease; Nurse Practitioner Family; Physician Assistant; ADMIT Internal Medicine
PROC: 02HV33Z Insertion of Infusion Device into Superior Vena Cava, Percutaneous Approach (ICD-10-PCS; principal; 2018-12-09)
DX: I50.33 Acute on chronic diastolic (congestive) heart failure (principal); J96.21 Acute and chronic respiratory failure with hypoxia; L03.115 Cellulitis of right lower limb; Z68.42 Body mass index [BMI] 45.0-49.9, adult; E66.2 Morbid (severe) obesity with alveolar hypoventilation; E87.3 Alkalosis; F15.10 Other stimulant abuse, uncomplicated; I27.20 Pulmonary hypertension, unspecified; G89.29 Other chronic pain; I95.9 Hypotension, unspecified; B96.5 Pseudomonas (aeruginosa) (mallei) (pseudomallei) as the cause of diseases classified elsewhere; I48.91 Unspecified atrial fibrillation; L30.4 Erythema intertrigo; F17.210 Nicotine dependence, cigarettes, uncomplicated; R53.81 Other malaise; Z88.0 Allergy status to penicillin; Z88.2 Allergy status to sulfonamides; Z91.14 Patient's other noncompliance with medication regimen
CPT/HCPCS: 99223-AI; 99231-AI; 99232-AI; 99233-AI; 99239; A9284; A9540; A9567; C1751; J0744; J1650; J1940; J2270; J2405; J3010; J3370; J7040; J7050

== ENCOUNTER 2018-12-20 15:45 | Inpatient (IN) | payer MEDICAID ==
[~2018-12-20] VITALS: Ht 157.5 cm; Wt 132.0 kg
[~2018-12-20 15:45] MED LIST changes: +ATARAX 25MG25 MG/TAB PO; +CIPRO 500MG TA500 MG PO; +DULCOLAX STOOL100 MG PO; +IPRATROPIUM BROM3 M1 IH; +LASIX 20MG TABL20 MG PO; +LASIX 40MG TABL40 MG PO; +LOTSPY; +MIRALAX PA17 GM/Dose PO; +NORCO 325 MG-7.1 TAB PO; +SILVADENE CREAM1 TU; +TOPROL XL 25MG25 MG PO; +TOPROL XL 50MG50 MG PO; +ZAROXOLYN5 MG PO; +ZYVOX 600MG600 MG PO
--- NOTE | 2018-12-20 18:09 | NUR ---
Report from Tila, medical RN. She states pt on 2L NC and contact isolation.
--- NOTE | 2018-12-20 18:21 | NUR ---
Pt eating supper sitting on bedside, asked what channel FX was on, informed pt. Alert.
[2018-12-20 18:28] VITALS: BP 143/82; PULSE 72
[2018-12-20] MEDS ORDERED: ZOFRAN INJ4 MG/2 ML IV (19:59)
[2018-12-20] MEDS ORDERED: MORPHINE SULF2 MG/M1 IV (20:05)
[2018-12-20] MEDS ORDERED: SEROQUEL 2525 MG/TAB PO (20:06)
[2018-12-20] MEDS ORDERED: LOVENOX 4040 MG/0.4 SQ (20:08)
[2018-12-20] MEDS ORDERED: TYLENOL 500MG500 MG PO (20:15)
--- NOTE | 2018-12-21 01:00 | NUR ---
PATIENT REPORTS NO RELIEF OF RLL PAIN REMAINS 01/04 AFTER 2 NORCOS TONIGHT. MORPHINE 2MG GIVEN SIVP. PURPLE PORT OF PICC WILL NOT FLUSH EVEN WITH MULTIPLE REPOSITIONING OF RIGHT ARM. RED PORT FLUSHES WNL. CAPS CHANGED. ALL HS MEDS REVIEWED AND GIVEN EARLIER. SEE ADMISSION ASSESSMENT. PATIENTS RLL WRAP CAME OFF BUT XEROFORMS REMAINED INTACT AND REWRAPPED WITH KERLIX. MODERATE AMOUNT OF YELLOW DRAINAGE NOTED. RLE ELEVATED ON PILLOW. PATIENT HAS BEEN UP SEVERAL TIMES TO VOID AND ASKED THIS NURSE TO WIPE FOLLOWING RECENT VOID. PATIENT ALERT AND ORIENTED. HAS HAD O2 ON 2LPNC. RT NOTIFIED PATIENT WILL ATTEMPT BIPAP AT THIS TIME. PATIENT ABLE TO SIT SELF UP AND REST SELF BACK IN BED AND WALK TO THE BATHROOM. REMINDERS TO CALL FOR ASSIST FOR SAFETY. CHF NOTEBOOK GIVEN.
[2018-12-21 01:09] VITALS: BP 117/73; PULSE 92; TEMP 97.8
--- NOTE | 2018-12-21 02:00 | NUR ---
Patient rests on left side. Respirations with ease. Reported pain improved to 6/10. Will give another norco at 0400.
--- NOTE | 2018-12-21 02:00 | NUR ---
Patient has bipap on warm blanket given per request and returns to sleeping.
--- NOTE | 2018-12-21 02:30 | NUR ---
Patient removed BIPAP "can't tolerate it". New nasal cannula given due to previous one on floor.
--- NOTE | 2018-12-21 05:00 | NUR ---
AWAKENED FOR MEDS AND NORCO TO KEEP PAIN UNDER CONTROL THEN RETURNS TO RESTING WITH EYES CLOSED.
[2018-12-21 07:00] VITALS: BP 133/90; PULSE 94; TEMP 98.1
--- NOTE | 2018-12-21 08:16 | NUR ---
Patient resting in bed, call light in reach and watching TV. Tolerated diet this morning. Getting ready for therapy for the day.
--- NOTE | 2018-12-21 15:53 | NUR ---
ROLA met with the patient, patient's mother ([place]), and daughter (Damien) to complete initial intake; as the patient is new to [facility] and to present and explain the IPR Team Conference Note. The patient lives in [place] with her daughter. The patient's mother lives nearby. She reports needing assistance with ADLs prior to hospitalization and has a cane, walker, wheelchair, showerchair, and home oxygen through [facility]. She states that her mother and daughter had been helping her with ADLs. Her mother reports that she is in the process of applying the patient to [address] [place] [address]. She states that if the patient is approved, she would receive twenty-eight hours of help a week. The patient's PCP is Dr. Horner and she receives her medications at [facility] in [place]. She reports no difficulties obtaining her meds. She states that her wound care supplies is expensive though. She states that outpatient wound care has been helping her out with the supplies. The patient would like to return home with her daughter upon discharge. She states that she would be interested in a 4WW with a seat. ROLA then reviewed the IPR Team Conference Note with the patient and patient's mother. The patient and her mother were in agreeance to re-evaluate next Wednesday and to have a family meeting on Wednesday, 12/28, at 1345. ROLA to inform IPR Director and SW to continue to follow to ensure a safe discharge.
[2018-12-21 16:41] VITALS: BP 104/48; PULSE 89; TEMP 98.2
--- NOTE | 2018-12-21 19:16 | NUR ---
Patient attended all therapies today, used call light appropriatly. Dressing was changed to right lower leg. Patient had a very difficult time with pain control. Dressing was taken off and new dressing applied. Patient was given prn Morphine to help with break through pain. She had an episode of SOB and was put on oxygen and was coached on breathing techniques to work through pain as well. She had no further episodes of SOB for the rest of the day. She was able. She was independent with eating, rolling side to side, sitting up in bed with this nurse observing her. Patient takes pills whole with water. Reported off to night nurse.
--- NOTE | 2018-12-21 20:00 | NUR ---
Patient sitting up in recliner visiting with family. Alert and oriented. Reports minimal pain. HS med reviewed and given. Ambulates with steady slow gait to the bathroom, to sink then rests self back in bed. FOB elevated. stays with patient through the night.
--- NOTE | 2018-12-21 20:45 | NUR ---
HS meds along with norco reviewed and given. Explained will do dressing change around [id number]. Patient rests in bed and reapplies O2. Snack of pudding x 2 and crackers given. Right leg weeping and has soaked through ABD's. Chux is on bed under leg. Repositions self and bed mobility independently.
--- NOTE | 2018-12-21 22:45 | NUR ---
Previous dressings to RLL removed without problems. Patient screaming and panting during dressing change. All around ankle and up calf macerated skin with yellow slough borders around multiple leg ulcers. Multiple new xeroforms applied and covered by 3 ABDs and then kerlix wrap. Patient post medicated with morphine 2 mg SIV and norco. Patient falls asleep shortly after.
--- NOTE | 2018-12-21 23:00 | NUR ---
Rests quietly in bed. Respirations with ease.
--- NOTE | 2018-12-22 00:39 | NUR ---
Patient rests with eyes closed on left side. Respirations with ease.
--- NOTE | 2018-12-22 05:42 | NUR ---
Patient resting until now. Pain med given and up to the bathroom/back to bed.
[2018-12-22 05:43] VITALS: BP 129/78; PULSE 98; TEMP 97.8
--- NOTE | 2018-12-22 11:51 | NUR ---
Dr. Gonzalez turned pt's O2 down from 2 to 1L/NC
--- NOTE | 2018-12-22 12:00 | NUR ---
reported that red lumen of PICC catheter hard to flush. Attempted to flush both lumens and right lumen is definitely unable to flush. With sterile technique right upper arm dressing change done with insertion site cleansed with ChloraPrep 1, chlorhexidine impregnated disc applied, skin prep, StatLock, and Tegaderm applied. Still unable to flush catheter was lumens. Chest x-ray done. Catheter tip location noted. At 1445 right upper arm PICC dressing change done with insertion site cleansed with ChloraPrep 1, allowed chlorhexidine to dry, catheter pulled out an additional 4 cm to 8 cm marking on catheter. Chlorhexidine impregnated disc applied, skin prep, and Tegaderm applied. Attempted to flush both ports and unable to flush. Catheter ruben and still. Primary care nurse informed.
--- NOTE | 2018-12-22 15:08 | NUR ---
Follow-up visit; Patient appeared to be doing well, Doll Surgeon offered uplifting and encouragement.
--- NOTE | 2018-12-22 16:03 | NUR ---
LUCY Ruiz RN instilled cathflo into Red port on PICC. Withdrew 10 ml blood and discarded, flushed with 20 ml, purple cap had blood return and flushed well with 10 ml NS.
[2018-12-22 17:57] VITALS: BP 134/78; PULSE 97; TEMP 97.8
--- NOTE | 2018-12-22 20:36 | NUR ---
Cleansed pannus and groin with green wipes, applied lotromin powder, skin intact but pinkend. Report to NITHYA Falcon.
--- NOTE | 2018-12-22 21:38 | NUR ---
PT RESTING IN BED. O2 1L NC. O2 SAT 95% HR 78. MORBIDLY OBESE. AMB TO BR WITH WHEELED WALKER. SBA. VOIDS W/DIFFICULTY. RETURN TO BED. PREPARED FOR RT LOWER LEG DRSG CHANGE. ISOLATION FOR MRSA IN THIS WOUND. SEE MAR FOR NORCO 7.5 AND MS 2MG IV GIVEN PRIOR TO ACTUAL DRSG CHANGE. ULCERATIONS ENCOMPASSING BELOW RT KNEE TO ANKLE HAS WEEPING SEROUS YELLOW DRAINAGE. PROCEDURE VERY PAINFUL. NOTED CELLULITIS ABOVE RT KNEE EXTENDEING DOWN TO WOUND AREA. SHIFT ASSESSMENT COMPLETED.
[2018-12-23 04:35] VITALS: BP 136/95; PULSE 105; TEMP 98.1
[2018-12-23 15:55] VITALS: BP 132/78; PULSE 101; TEMP 98
--- NOTE | 2018-12-23 17:08 | NUR ---
Patient attended all therapies today. Currently resting in bed at this time, call light in reach and slip proof socks are on. Dressing change completed to RLE and patient did have some discomfort that caused her to be tearful following the dressing change. Given PRN Tramadol following dressing change, given PRN Morphine prior to dressing change and [place] during dressing change. Will continue to monitor.
--- NOTE | 2018-12-23 20:30 | NUR ---
PT RESTING IN BED. REQUESTING PAIN MED FOR LT SHOULDER PAIN. SEE AUG. PT ABLE TO GET UP W/SBA /WALKER TO GO TO BR. HAD MED SOFT FORMED BROWN BM WITH VOID. NEEDED ASSIST WITH TOILETING TASKS. BACK TO BED. CHEERFUL AD TALKATIVE. DRSG TO RLE REINFORCE WITH GAUZE TO LOWER EDGE -YELLOWISH DRG NOTED. TAPE TO SECURE FROM FALLING. CONTINUED ISOLATION FOR MRSA IN WOUND. CALL LIGHT IN REACH.
--- NOTE | 2018-12-24 00:27 | NUR ---
PT NOT WEARING BIPAP. THEREFORE AFTER 2 DAYS OF NOT WEARING BIPAP WAS TAKEN OUT OF PTS ROOM. PT IS FINE AND IN NO DISTRESS ON 2LPM OF . WILL CONTINUE TO MONITOR PT
[2018-12-24 05:02] VITALS: BP 148/86; PULSE 76; TEMP 97.6
--- NOTE | 2018-12-24 09:00 | NUR ---
Patient was reporting nausea following eating her breakfast. This nurse gave her prn zofran. No other episodes of nausea were reported.
[2018-12-24 16:38] VITALS: BP 131/87; PULSE 75; TEMP 98.2
--- NOTE | 2018-12-24 20:30 | NUR ---
PT ANXIOUS. REQUEST DRSG BE CHANGED TO RT LOWER LEG AGAIN. VERY INSISTENT. PT RELATED PAIN ALSO LEVEL 7/10. MS 2MG IV GIVEN PRIOR TO DRSG CHANGE. DRSG REMOVED DOWN TO ABD DRG'S. SMALL AMT OF YELLOW DRAINAGE NOTED ON POSTERIOR SIDE. NEW ABD PLACED THEN KERLIX. ASSISTED PT TO BR. VOIDED. BACK TO BED. NO OTHER COMPLAINT OR NEEDS AT THIS TIME. ISOLATION FOR MRSA CONTINUES.
--- NOTE | 2018-12-24 23:59 | NUR ---
PT RESTING NOW. NO RESP DISTRESS.
[2018-12-25 02:42] VITALS: BP 129/72; PULSE 104; TEMP 99.1
--- NOTE | 2018-12-25 02:48 | NUR ---
PT VERY SLEEPY. PT REQUST PAIN MED THEN FALLS BACK ASLEEP.
--- NOTE | 2018-12-25 03:24 | NUR ---
PT SLEEPING. NO DISTRESS. SNOROUS RESP. O2 1L NC
--- NOTE | 2018-12-25 11:06 | NUR ---
PT CONTINUES IN CONTACT ISOLATION FOR MRSA. PT WAS LAYING IN BED THIS AM AND AWAKENS WHEN NURSE COMES INTO ROOM. PT DENIES PAIN DURING THIS TIME. ASSESSMENT COMPLETED. PT REFUSED THE DESAINEX POWER TO PANNIS AND BREASTS STATES SHE IS OK. SITE IS REDDISH BUT NOT FLAMING RED. RIGHT LOWER LEG IS WRAPPED WITH KERLIX AND IS CDI. PAD UNDER LEG FOR LEAKING. PT ATE 100% MEAL. 1030JUVEN WAS DELIVERED;PT SLEEPING AND WHEN NURSE ASKED IF SHE WANTED THE XAVIER, SHE WAS SNORING. PLACED THE XAVIER IN THE FRIDGE. CALL LIGHT IN REACH. TV ON
--- NOTE | 2018-12-25 12:43 | NUR ---
PT REPORTS BURNING PAIN TO RIGHT LOWER LEG. GIVEN NORCO 1 TAB
--- NOTE | 2018-12-25 15:36 | NUR ---
pt given ultram as pre med for the dressing change.
[2018-12-25 16:18] VITALS: BP 130/70; PULSE 74; TEMP 98.8
--- NOTE | 2018-12-25 18:34 | NUR ---
DRESSING CHANGE DONE AT 1630. THERE WAS SOME BLOOD ON THE DRESSING IT WAS REMOVED. THERE WERE SEVERAL LAYERS OF TISSUE MISSING, A SMALL AMT OF ESCHAR SEEN. MOSTLY A HAMBURGER LIKE APPEARANCE.
--- NOTE | 2018-12-25 20:30 | NUR ---
PT RESTING IN BED. O2 1L N/C. NO RRSP DISTRESS. CONTINUED ISOLATION FOR MRSA. NO NEEDS AT THIS TIME.
--- NOTE | 2018-12-25 21:00 | NUR ---
RTLOWER LEG DRSG CDI. REDNESS EXTENDING DOWN FROM ABOVE RT KNEE TO DRSG. FOOT PINK/ COOL. GOOD SENSATION.
[2018-12-26 04:25] VITALS: BP 112/62; PULSE 96; TEMP 97.4
--- NOTE | 2018-12-26 04:40 | NUR ---
PT REQUEST MORE PAIN MEDICATION FOR SHOULDER AND LT KNEE PAIN. SEE MAR FOR ULTRAM. SITTING ON EDGE OF BED RUBBING KNEE. WAITING FOR KPAD TO WARM UP.
[2018-12-26 07:15] LABS: BASO # 0.1 (0.0-0.2); BASO % 1.3 % (0.0-2.0); EOS # 0.1 (0.0-0.7); EOS % 3.1 % (0-4.0); GRAN # 2.1 (1.4-6.5); GRAN % 54.8 % (42.2-75.2); HEMATOCRIT 41.8 % (37.0-47.0); HEMOGLOBIN 12.8 g/dl (12.5-16.0); LYMPH # 1.1 (1.2-3.4); LYMPH % 27.7 % (20.0-51.0); MEAN CELL VOLUME 97 fl (80.0-100.0); MEAN CORPUSCULAR HEMOGLOBIN 30 pg (27.0-31.0); MEAN CORPUSCULAR HGB CONC 31 g/dl (33.0-37.0); MEAN PLATELET VOLUME 9.7 fl (7.4-10.4); MONO # 0.5 (0.1-0.6); MONO % 12.6 % (1.7-9.3); PLATELET COUNT 120 K/mm3 (130-400); REDCELL DISTRIBUTION WIDTH-CV 14.1 % (11.5-14.5)
[2018-12-26 07:25] LABS: ALBUMIN 3.6 gm/dL (3.5-5.0); BILIRUBIN,TOTAL 1.1 mg/dL (0.0-1.0); CALCIUM 9.4 mg/dL (8.4-10.2); CREATININE, serum 0.96 (0.52-1.25); MAGNESIUM 1.9 mg/dL (1.6-2.3); POTASSIUM 4.4 mmol/L (3.4-5.0); TOTAL PROTEIN 7.4 gm/dL (6.4-8.2)
--- NOTE | 2018-12-26 13:44 | NUR ---
Pt has O2 at 2 L/NC, turned down to 1 at lunch as pt was on room air before. Pt's mom and daughter here this morning to have yraed sign medical papers for daughter's dentist appt. Yared arrived and helped. Pt on contact isolation precautions. Dressing to RLE shadowing with yellow drainage. Pt asked about getting morphine with dressing change, informed that Dr. Gonzalez discontinued it, but did have order for lidocaine gel. Pt amb with rollator walker.
--- NOTE | 2018-12-26 15:44 | NUR ---
Dressing to RLE changed, yellow serrous drainage shadowed through old dressing. Cleansed with saline and gauze briefly as pt could not tolerate much. Wound areas in various stages of slough/emaceration/granulation. Applied lidocaine jelly to wound areas. Applied three abd pads around calf and wrapped with kerlix and secured with paper tape. Pt cries out, enc to breathe, resolves when finished with wound care. O2 per NC, enc to call meals for tomorrow. Earlier, pt requested jessica cares after cont of BM.
[2018-12-26 17:41] VITALS: BP 128/66; PULSE 81; TEMP 98.4
--- NOTE | 2018-12-26 20:30 | NUR ---
HS meds along with norco for pain reviewed and given. Patient rests in bed with o2 on. Denies further needs.
--- NOTE | 2018-12-27 03:00 | NUR ---
PAIN MED GIVEN EARLIER AND PATIENT RESTS IN BED WITH EYES CLOSED. RESPIRATIONS WITH EASE. 02 ON.
[2018-12-27 04:21] VITALS: BP 101/52; PULSE 70; TEMP 98
--- NOTE | 2018-12-27 05:59 | NUR ---
Patient awakened briefly for med and requests pain med. [place] 1 tab given and returns to resting with eyes closed.
--- NOTE | 2018-12-27 08:51 | NUR ---
Report from NITHYA Wong. Pt's dressing falling off, removed all but the xeroform gauze layer, much serrous drainage, relaced 3 abds and kerlix, paper tape, and yellow sock.
--- NOTE | 2018-12-27 15:19 | NUR ---
The patient's [employer] Mand[employer] Teacher is Galdino Sanchez contacted ROLA. Jabier will assist with any discharge needs. ROLA will continue to follow.
[2018-12-27 16:03] VITALS: BP 124/75; PULSE 95; TEMP 98.6
--- NOTE | 2018-12-27 16:25 | NUR ---
Changed dressing to RLE wounds, had soaked through with yellow serrous drainage. Gently cleansed open areas with saline on gauze until pt could no longer tolerate. Various raw areas, to white or yellow slough and fibin build up. Lidocaine jelly applied, then xeroform gauze to open areas, three super absorbent pads, three abd pads, then cotton soft roll, then large coband and secured with paper tape.
--- NOTE | 2018-12-27 21:15 | NUR ---
Patient awakened for HS meds and requests pain med/reviewed and given. Dressing to RLL CDI. Patient quiet. Had snack of pudding. Rests in bed and denies further needs. 02 on 1lpnc.
--- NOTE | 2018-12-28 03:14 | NUR ---
Patient rests quietly in bed. Light snoring respirations.
[2018-12-28 04:54] VITALS: BP 104/58; PULSE 89; TEMP 98.9
--- NOTE | 2018-12-28 05:28 | NUR ---
REPORTS PAIN LEVEL 6/10 TO LEFT KNEE AND RLL. TRAMADOL GIVEN. O2 ON 1 LPNC.
--- NOTE | 2018-12-28 12:45 | NUR ---
PICC intact right upper arm. With sterile technique right upper arm PICC dressing change done with insertion site cleansed with ChloraPrep 1, chlorhexidine impregnated disc applied, skin prep, StatLock, and Tegaderm applied. No signs or symptoms of IV complications noted. No concerns voiced. Extension set secured.
--- NOTE | 2018-12-28 15:58 | NUR ---
SW attended a family conference with the pt's mom and daughter; IPR Director, OT, PT, ST were also in attendance. Therapist discussed their recommendations and staff addressed concerns. Home Health is recommended with PT/OT and wound care. The pt would like to continue with a wound care provider she has had in the past. SW presented a list of home healt providers for the [facility] from Medicare.gov to the patient. Pt states she will discuss it with her mom then make a decision on an agency. ROLA reviewed the IPR Team Conference 2 notes with the patient. There were no questions at this time. ROLA will continue to follow.
--- NOTE | 2018-12-28 16:03 | NUR ---
Patient resting in bed with family by her side. Patient is a one assist with walker to the bathroom and back to her bed. Patient requires staff to wipe her as she is not able to reach that area. Patient tolerated dressing change to right lower leg using lidocaine to help with pain control. Patient was able to tolerate without crying this shift. Will continue to monitor.
[2018-12-28 17:25] VITALS: BP 128/88; PULSE 90; TEMP 97.8
--- NOTE | 2018-12-28 20:00 | NUR ---
PT RESTING IN BED. O2 1 LNC. USES O2 AT HOME. NO RESP DISTRESS. REMAINS IN ISOLATION FOR MRSA. SEE MAR FOR PAIN MED GIVEN. STEADY GAIT WITH ROLLING WALKER. CALL LIGHT IN REACH BED ALARM INTACT.
[2018-12-29 05:32] VITALS: BP 122/65; PULSE 88; TEMP 98.6
--- NOTE | 2018-12-29 09:23 | NUR ---
Patient currently working with PT at this time and getting ready to go to group therapy. Patient able to take pills whole by self. Tolerated diet well eating 100% this morning. Pain is being controlled with prn PO pain meds and are effective. Will continue to monitor. Patient was independent with rolling from side to side in bed, sitting up in bed, and lying down. Patient used walker to transfer to toilet and was observation only. Patient is independent in her grooming tasks.
--- NOTE | 2018-12-29 17:00 | NUR ---
Patient used bed side commode and was modified independent with bladder. Patient takes bowel meds, uses bed side commode and is modified independent with her bowels. She is independent with eating. She was observation only with toileting transfers.
[2018-12-29 18:45] VITALS: BP 100/48; BP 159/98; PULSE 74; PULSE 86; TEMP 97.6; TEMP 98
--- NOTE | 2018-12-29 21:00 | NUR ---
PT RESTING IN BED. APPEARS DEPRESSED. LIMITED VERBAL COMMUNICATION. ISOLATION FOR MRSA CONTINES.
[2018-12-30 04:12] VITALS: BP 143/93; PULSE 98; TEMP 98.1
--- NOTE | 2018-12-30 04:14 | NUR ---
PT REPORTS HAVING NIGHTMARES. UP TO BR. VOIDED. VS OBTAINED. PT AMB W/ SBA. RLE DRSG CONTINUES TO CDI.
--- NOTE | 2018-12-30 08:30 | NUR ---
Patient in bed resting. Alert and oriented x 3. Shift assessment complete. Dressing to RLE with drainage present. Patient states she usually gets her dressing changed after physical therapy in the afternoon. Patient up to restroom with walker, steady gait. Stand by assist. Denies further needs at this time.
--- NOTE | 2018-12-30 13:38 | NUR ---
ROLA followed-up with the patient about home health services. The pt and her mom have not made a decision yet. ROLA will continue to follow.
--- NOTE | 2018-12-30 15:40 | NUR ---
Dressing changed to RLE. Dressed with xeroform, kerlex, ABD and coban. Skin around wound bed appears red. Wound bed with slough present. Patient states increse in pain when wound is in contact with air. Lidocaine gel applied prior to dressing application. Denies further needs at this time.
[2018-12-30 18:03] VITALS: BP 106/67; PULSE 73; TEMP 98.8
--- NOTE | 2018-12-30 18:31 | NUR ---
Patient has done well this afternoon, Has requesed pain medications thoughout the day for various pain. Dressing to RLE remains CDI. Denies further needs at this time. 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
--- NOTE | 2018-12-30 18:55 | NUR ---
Report received from Raina BARRIGA. Pt called c/o left shoulder pain 01/04. Pain is sharp. Pt requests PRN pain meds. Pt up to bathroom with walker and stand by assist. Pt is steady but becomes very SOB during ambulation. O2@1L via NC in bed. Pt voiding clear, patricia urine. Pt also had medium sized soft BM. Pt lungs clear to auscultation. BS+. Abdomen soft, nontender but abdominal skin very thick and rough. Redness noted under panus. Desenex powder. RLE wound dressing clean, dry and intact- covered with Kerlix. Pt reports that dressing was just changed. Pt reports some nausea- requests crackers. Pt denies any further needs at this time. Will continue to monitor.
--- NOTE | 2018-12-30 21:45 | NUR ---
Pt called saying that she was having difficulty breathing. Pt reports that she doesn't feel like she was getting enough O2 via the nasal canula. O2 was set at 1L, which pt reports she has been getting 2L this hospital stay. When nurse entered the room, however, patient was not wearing any O2. SpO2 was 89-90% on room air. O2@2L applied. SpO2 96%
--- NOTE | 2018-12-31 05:15 | NUR ---
Pt c/o pain in RLE wound this AM. PRN pain medication given. Per pt her night was "okay". No acute distress noted. Pt has been up to bathroom multiple times with good urinary output. No needs noted.
[2018-12-31 06:15] VITALS: BP 101/45; PULSE 66; TEMP 97.8
--- NOTE | 2018-12-31 07:56 | NUR ---
Report from NITHYA Lopez. Pt called for ice with breakfast, norco for pain in RLE with wound. States that lidocain jelly works well with dressing changes. Yellow gripper socks in reach, pt uses 4WW. Reg diet and takes pills whole with thin liquids. O2 per NC at 2L and at 94%. Turned down to 1.5L.
[2018-12-31 07:58] VITALS: PULSE 70
[2018-12-31 14:57] VITALS: BP 114/65; PULSE 71; TEMP 98.1
--- NOTE | 2018-12-31 15:21 | NUR ---
Dressing changed at this time.
--- NOTE | 2018-12-31 15:51 | NUR ---
During dressing change, removed old dressings which had yellow serrous drainage, gently cleansed wounds as long a pt could tolerate, various areas of slough and granulation and emaceration, but overall appears to be improving since this nurse last did dressing change few days ago. Applied lidocaine jelly and xeroform gauze to open wounds, then some telfa pads, abd pads, soft cotton roll, and coband.
--- NOTE | 2018-12-31 16:53 | NUR ---
Pt states she sees Dr. Horner at [facility], Dr. Jiménez at [place] or [place], and Wound Care in [place].
--- NOTE | 2018-12-31 18:06 | NUR ---
Pt toileted, assisted with jessica care after BM per pt request. Returned to bed, removed tray, pt states she ordered her meals for tomorrow. Denies further needs.
--- NOTE | 2018-12-31 19:13 | NUR ---
Report to NITHYA Mayorga.
--- NOTE | 2018-12-31 22:47 | NUR ---
PT IN BED. NO c/o N/V. NORCO FOR LOWER EXT. DISCOMFORT. UP INDEPENDENTLY IN ROOM.
[2019-01-01 04:31] VITALS: BP 102/54; PULSE 70; TEMP 98.9
--- NOTE | 2019-01-01 06:08 | NUR ---
RESTING QUIETLY. ALTERNATING NORCO AND TRAMADOL FOR PAIN. UP INDEPENDENTLY IN ROOM.
--- NOTE | 2019-01-01 08:15 | NUR ---
Report from NITHYA Mayorga. Pt called for breakfast and sprite zero, brought in, contact iso observed. Pt on O2/NC. [place] for pain to RLE, dressing intact. Pt alert and pleasant. PICC without complications.
--- NOTE | 2019-01-01 12:33 | NUR ---
Provided diet sprite, ultram, lunch, and emanuel.
[2019-01-01 15:22] VITALS: BP 105/81; PULSE 73; TEMP 98.5
--- NOTE | 2019-01-01 16:14 | NUR ---
Performed dressing change to RLE. Cont to have serrous with slight sanguinous drainage, cleansed with saline on gauze until pt could no longer tolerate. Various degrees of open raw wound bed and slough and healing. Applied lidocaine jelly, xeroform gauze, abds, cotton roll, and coband.
--- NOTE | 2019-01-01 18:48 | NUR ---
Pt bedresting, ultram for pain 11/04. O2 at 2L/NC.
--- NOTE | 2019-01-01 19:23 | NUR ---
Report to NITHYA Mayorga.
--- NOTE | 2019-01-02 04:33 | NUR ---
PT IN BED. UP TO TOILET INDEPENDENTLY. ALTERNATING NORCO AND TRAMADOL FOR PAIN.
[2019-01-02 05:30] VITALS: BP 115/58; PULSE 88; TEMP 98.4
--- NOTE | 2019-01-02 08:30 | NUR ---
Patient in bed resting. Alert and oriented x3. Shift assessment complet. Patient independent in room with walker. Dressing to RLE is CDI. Patient requests medication for pain 12/05, given per orders. Denies further needs at this time.
--- NOTE | 2019-01-02 14:52 | NUR ---
ROLA met with patient to discuss discharge tomorrow. She told this worker to call her mother as she had made a decision for home health. ROLA called her and she would like [facility] and a walker with a seat. ROLA called [facility] and they do not take medicaid. ROLA called patients aetporfirio lerma and left a message to see what is in network and what equipment they will cover. Will follow up.
--- NOTE | 2019-01-02 15:54 | NUR ---
Dressing change to RLE. Extremity covered with xeroform, cotton roll, ABD and coban.
--- NOTE | 2019-01-02 16:16 | NUR ---
ROLA talked with Galdino at [facility] who provided a list of HH and DME that is in network. ROLA presented the choices and they chose [facility] if they could do PT and OT as well as [facility] for a walker. If insurance doesnt cover PT and ot she wants to know if outpatient at [facility] is covered. ROLA called [facility] who reports it will only cover half-way. ROLA faxed order and clinical information to [facility] for walker. [facility] reports they do accept [facility] medicaid for outpatient PT. ROLA called patients mother and left a vm. WIll follow up.
[2019-01-02 17:59] VITALS: BP 120/60; PULSE 96; TEMP 98.9
--- NOTE | 2019-01-02 18:36 | NUR ---
Patient has done well today. Has requested pain medications thoughout the day, given per orders. Denies further needs at this time. 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
--- NOTE | 2019-01-02 19:15 | NUR ---
Pt sitting at side of bed after ambulating to bathroom to void. Pt having some [place]. Pt denies pain at this time. Lungs clear. Abdomen soft, nontender. BS+. Panus is reddned underneath. Using Desenex powder to treat. RLE wound dressing clean, dry and intact. Pedal pulses equal-2+. Pt denies needs at this time. Will continue to monitor.
--- NOTE | 2019-01-02 21:00 | NUR ---
Pt reports pain in shoulder that is increasing. Currently rating it a 5/10. PRN pain medication given.
--- NOTE | 2019-01-02 22:00 | NUR ---
Pts R UA PICC line dressing is starting to come loose. Pt refused to have the dressing changed.
--- NOTE | 2019-01-02 22:39 | NUR ---
Pt reports shoulder pain has increased to 7/10. PRN [place] given. No acute distress noted. No further needs.
--- NOTE | 2019-01-03 00:45 | NUR ---
Pt called for pain medication. It is not time for either of her pain medications. Pt made aware. She is c/o shoulder pain 12/05. Kpad applied to pts L shoulder. No further needs noted.
--- NOTE | 2019-01-03 05:16 | NUR ---
Pt c/o pain 5/10 in shoulders. No distress noted. Awake and alert. PRN pain medication given. No other needs noted.
[2019-01-03 05:53] VITALS: BP 122/65; PULSE 73; TEMP 98.8
[2019-01-03] MEDS ORDERED: TOPROL XL 25MG25 MG PO (08:34)
[2019-01-03] MEDS ORDERED: LAMICTAL 25MG T25 MG PO (08:35)
[2019-01-03] MEDS ORDERED: ATARAX 25MG25 MG/TAB PO (08:35)
[2019-01-03] MEDS ORDERED: LIDO2%GEL TOP (08:36)
[2019-01-03] MEDS ORDERED: LASIX 20MG TABL20 MG PO (08:36)
[2019-01-03] MEDS ORDERED: ULTRAM 50MG TAB50 MG PO (08:37)
[2019-01-03] MEDS ORDERED: NORCO 325 MG-7.1 TAB PO (08:37)
[2019-01-03] MEDS ORDERED: PROAIR HFA0.09 MG/AC IH (08:37)
--- NOTE | 2019-01-03 11:53 | NUR ---
Patient is dc home today with outpatient PT through [facility] and wound care through the [facility] with [place]. Patient is agreeable to plan as patients insurance wont cover HH PT and wont cover home health SN if she is doing outpatient PT. Nurse informed of plan. ROLA talked with [facility] who reports medicaid wont cover a 4ww with seat. ROLA informed them of the cost out of pocket. No other discharge needs at this time.
--- NOTE | 2019-01-03 14:45 | NUR ---
Patient Health Summary, Discharge Summary, and Home Meds printed and reviewed with patient and mother. Stressed importance of follow up appointments. Reviewed medications, provided printed prescriptions for [place], Ultram and [place]. Verified home meds with pharmacy. Belongings gathered by NITHYA/Jessica and family. Patient transported via wheelchair by BLAISE/Catrachita and seatbelted for ride home. Patient denied any questions at this time.
--- NOTE | 2019-01-03 18:04 | NUR ---
This nurse is still awaiting a return call from Infectious Disease specialist and Sleep Study Lab to set up appointments for patient. Patient also reported that she could not find her gown that was last seen in the laundry hamper in the patient's room yesterday. It was a dress that was printed and was strapples. This was reported to Praveena Rae and housekeeping. Housekeeping reported that the houskeeper yesterday saw it in the hamper when she was in the room. Patient reports the last time she saw it was yesterday. The hamper this morning was empty and this nurse searched both the trash bin in patient's room and the laundry bin in patient room with no success.
--- NOTE | 2019-01-04 12:00 | NUR ---
Call placed to via [facility]. Marilou stated that patient would need a prior authorization due to her insurance. Patient was called and notified to go through her PCP for the prior authorization. Dr. Estevez's office was called by this nurse and appointment was set for patient for 01/20/19 at 12:45 PM. Patient was notified of this.
== END 2019-01-03 14:45 | disposition home or self-care (01) | DRG 947 ==
PROVIDERS: ADMIT Internal Medicine
DX: R53.81 Other malaise (principal); J96.20 Acute and chronic respiratory failure, unspecified whether with hypoxia or hypercapnia; I50.32 Chronic diastolic (congestive) heart failure; J44.1 Chronic obstructive pulmonary disease with (acute) exacerbation; E87.3 Alkalosis; L03.115 Cellulitis of right lower limb; E66.2 Morbid (severe) obesity with alveolar hypoventilation; Z68.42 Body mass index [BMI] 45.0-49.9, adult; I27.20 Pulmonary hypertension, unspecified; F15.10 Other stimulant abuse, uncomplicated; F17.210 Nicotine dependence, cigarettes, uncomplicated; I11.0 Hypertensive heart disease with heart failure; I95.9 Hypotension, unspecified; I48.91 Unspecified atrial fibrillation; B96.5 Pseudomonas (aeruginosa) (mallei) (pseudomallei) as the cause of diseases classified elsewhere; B95.8 Unspecified staphylococcus as the cause of diseases classified elsewhere; B96.89 Other specified bacterial agents as the cause of diseases classified elsewhere; Z88.0 Allergy status to penicillin; Z88.2 Allergy status to sulfonamides; Z88.8 Allergy status to other drugs, medicaments and biological substances; Z86.14 Personal history of Methicillin resistant Staphylococcus aureus infection
CPT/HCPCS: 99222-AI; 99232-AI; J1650; J2270; J2405; J2997

== ENCOUNTER → 2019-03-02 | Outpatient (CLI) | payer MEDICAID ==
[~2019-03-02] MED LIST changes: +LAMICTAL 25MG T25 MG PO; +LIDO2%GEL TOP; +LOVENOX 4040 MG/0.4 SQ; +MORPHINE SULF2 MG/M1 IV; +PROAIR HFA0.09 MG/AC IH; +ULTRAM 50MG TAB50 MG PO
== END ==
LOC: ZCOL.LAB 11:39
DX: S81.801A Unspecified open wound, right lower leg, initial encounter (principal)

== ENCOUNTER → 2019-04-05 | Outpatient (CLI) | payer MEDICAID | LOC: ZCOL.LAB 11:23 | DX: I83.009 Varicose veins of unspecified lower extremity with ulcer of unspecified site (principal) ==

== ENCOUNTER 2019-06-29 11:00 | Day surgery (SDC) | payer MEDICAID ==
[~2019-06-29] VITALS: Ht 157.5 cm; Wt 172.8 kg
[2019-06-29 12:03] VITALS: BP 139/97; PULSE 104; TEMP 97.4
[2019-06-29 12:12] LABS: TRICYCLIC ANTIDEPRESS URINE NEGATIVE
[2019-06-29] MEDS ORDERED: TOPROL XL 25MG25 MG PO (12:29)
[2019-06-29] MEDS ORDERED: ROXICODONE 55 MG/TAB PO (12:31)
[2019-06-29] MEDS ORDERED: [UNRECOGNIZED DRUG - OTHER] TOP (12:31)
[2019-06-29] MEDS ORDERED: LASIX 40MG TABL40 MG PO (12:32)
[2019-06-29] MEDS ORDERED: PROAIR HFA0.09 MG/AC IH (12:34)
[2019-06-29] MEDS ORDERED: ATARAX 25MG25 MG/TAB PO (12:36)
[2019-06-29] MEDS ORDERED: NEXIUM 20MG20 MG PO (12:36)
[2019-06-29] MEDS ORDERED: TYLENOL 500MG500 MG PO (12:37)
[2019-06-29] MEDS ORDERED: NEURONTIN300 MG/CAP PO (12:38)
[2019-06-29] MEDS ORDERED: PREDNISONE1 MG PO (12:38)
[2019-06-29] MEDS ORDERED: [UNRECOGNIZED DRUG - CODE] TOP (13:26)
[2019-06-29] MEDS ORDERED: JUVEN1 PDR PO (13:27)
[2019-06-29] MEDS ORDERED: ZOFRAN 4MG T4 MG/TAB PO (15:47)
[2019-06-29 16:03] VITALS: BP 134/99; PULSE 136; PULSE 80; TEMP 98.2
[2019-06-29 17:41] LABS: CALCIUM 9.5 mg/dL (8.4-10.2); CREATININE, serum 1.32 (0.52-1.25); POTASSIUM 4.6 mmol/L (3.4-5.0)
[2019-06-29 19:27] VITALS: BP 116/85; PULSE 90; TEMP 97.6
== END 2019-06-29 20:05 | disposition left against medical advice (07) ==
LOC: SURG 11:00 → SDCO 11:00 → SURG 14:32 → SDCO 20:05
PROVIDERS: Nurse Anesthetist, Certified Registered
DX: Z45.2 Encounter for adjustment and management of vascular access device (principal); L88 Pyoderma gangrenosum; I10 Essential (primary) hypertension; K75.9 Inflammatory liver disease, unspecified; I50.9 Heart failure, unspecified; K21.9 Gastro-esophageal reflux disease without esophagitis; I87.2 Venous insufficiency (chronic) (peripheral); F17.210 Nicotine dependence, cigarettes, uncomplicated; G47.33 Obstructive sleep apnea (adult) (pediatric); I27.20 Pulmonary hypertension, unspecified; G89.29 Other chronic pain; F41.9 Anxiety disorder, unspecified; E66.01 Morbid (severe) obesity due to excess calories; Z68.44 Body mass index [BMI] 60.0-69.9, adult; Z86.14 Personal history of Methicillin resistant Staphylococcus aureus infection; Z83.3 Family history of diabetes mellitus; Z82.49 Family history of ischemic heart disease and other diseases of the circulatory system; Z80.9 Family history of malignant neoplasm, unspecified; Z88.0 Allergy status to penicillin; Z88.1 Allergy status to other antibiotic agents; Z53.8 Procedure and treatment not carried out for other reasons
CPT/HCPCS: OP; J7030; J7120